=== PATIENT | male | born 1965 | race Caucasian/White ===

== ENCOUNTER 2023-02-18 09:22 | Outpatient (CLI) | payer OTHER ==
[~2023-02-18 09:22] MED LIST: LOSARTAN POTASS25 MG
== END 2023-02-18 09:30 | disposition home or self-care (01) ==
LOC: RAD 09:22
PROVIDERS: ATTEND Orthopaedic Surgery
DX: M25.512 Pain in left shoulder (principal); M79.672 Pain in left foot